=== PATIENT | female | born 1975 | race Caucasian/White ===

== ENCOUNTER 2019-09-10 14:07 | Emergency (ER) | payer BC, SELFPAY ==
--- NOTE | ~2019-09-10 | XR_ITS ---
EXAMINATION: XR finger 5th RT min 2V EXAM DATE: 09/10/2019 14:39 INDICATION: Initial encounter following injury, with pain of the right fifth finger. Laceration TECHNIQUE: Right fifth finger frontal, lateral and oblique projections obtained and reviewed. Ther e is no prior study for comparison. FINDINGS: There are no acute right fifth finger fractures or dislocations identified. There is no cee bcutaneous gas. Can't identify the laceration described. There are no radiopaque foreign bodies. IMPRESSION: No acute osseous findings. Reviewed, dictated and finalized at location A. IMPRESSION: No acute osseous findings.
[2019-09-10 14:24] VITALS: BP 122/79; PULSE 60; RESP 16; TEMP 36.3; O2SAT 100
--- NOTE | 2019-09-10 14:31 | ED.UPPEXIN ---
HPI - Extremity Injury (Upper) General Chief Complaint: Extremity Injury, Upper Stated Complaint: Right pinky injury History of Present Illness HPI narrative: This is a 44-year-old female comes in complaining of hitting her finger with a mallet and now her fingers open possibly need stitches patient stated her hand hurt but she is able to move her fingers patient denies any debris or anything being her finger able to move her finger. Related Data Allergies Allergy/AdvReac Type Severity Reaction Status Date / Time No Known Allergies Allergy Unverified 01/04/16 14:35 Review of Systems Review of Systems: Narrative: CONSTITUTIONAL: Denies fever, chills, or sweats. EYES: Denies visual changes, redness, or discharge. ENT: Denies rhinorrhea, congestion, sore throat, or otalgia. CARDIOVASCULAR:Denies chest pain, palpitations, or edema. RESPIRATORY: Denies cough or dyspnea. GASTROINTESTINAL: Denies abdominal pain, nausea, vomiting, or diarrhea. GENITOURINARY: Denies dysuria or hematuria. SKIN:[Denies rash or itching. Right lateral fifth finger laceration MUSCULOSKELETAL:Denies back pain, joint pain, or myalgia. NEUROLOGIC: Denies headache, numbness, or weakness. PSYCHIATRIC:Denies anxiety or depression PMFSH Social History Social History Smoking status: Never smoker Second hand tobacco smoke exposure: No Comments At time as signature, I have reviewed and agree with nursing past medical, social, surgical and family history. Please see nursing chart for further information. There is no relevant family history pertinent to the presenting complaint. Exam Narrative: Exam Narrative: GENERAL:Well-appearing, well-nourished, and in no acute distress. HEAD:Normocephalic, atraumatic. EYES: PERRLA and EOMI. ENT: Nares clear, no rhinorrhea or epistaxis. Mucous membranes moist. NECK: Supple. CHEST: Clear to auscultation. No respiratory distress. HEART: Regular rate and rhythm. No murmur heard. Normal peripheral pulses. ABDOMEN: Soft, nontender, nondistended, normal active bowel sounds. EXTREMITIES: Normal range of motion. No edema. SKIN: Warm, dry, no rash. 2 cm laceration on right lateral fifth finger open when the sutures NEURO: No focal deficits. Alert and oriented x3. Course Vital Signs Vital signs: Vital Signs Temperature 97.4 F L 09/10/19 14:24 Pulse Rate 60 09/10/19 14:24 Respiratory Rate 16 09/10/19 14:24 Blood Pressure 122/79 09/10/19 14:24 Pulse Oximetry 100 09/10/19 14:24 Temperature 97.4 F L 09/10/19 14:24 Pulse Rate 60 09/10/19 14:24 Respiratory Rate 16 09/10/19 14:24 Blood Pressure 122/79 09/10/19 14:24 Pulse Oximetry 100 09/10/19 14:24 Procedures Laceration Laceration 1: Date: 09/10/19 Time: 14:59 Site: hand Side (If applicable): right (little finger) Size (cm): 2 Description: linear Depth: simple, single layer Local Anesthetic: lidocaine 1% Amount of anesthesia used (mL): 0.75 Pre-repair: irrigated (350) ====== Skin Level ====== Skin layer closed with: other (ethilon) Size (cm): 6-0 Number of sutures: 6 Technique: simple, interrupted ====== Subcutaneous Layer ====== ====== Muscle Layer ====== ====== Tendon Layer ====== MDM - Extremity Injury (Upper) Differential Diagnosis Differential diagnosis: Likely sprain and strain of wrist, finger sprain, dislocation of finger and other (finger laceration ) Discharge Plan Discharge Clinical Impression: Finger laceration Qualifiers: Encounter type: initial encounter Finger: little finger Damage to nail status: with damage Foreign body presence: without foreign body Laterality: left Qualified Code(s): S61.317A - Laceration without foreign body of left little finger with damage to nail, initial encounter Patient Disposition: Home, Self-Care Condition: Stable Instructions: Antibiotic Form, Finger La
[2019-09-10] MEDS: TETANUS,DIPHTHERIA,AC PERTUSSIS ADULT 0.5 ML (ADACEL) IM (14:44)
== END 2019-09-10 15:32 | disposition home or self-care (01) ==
PROVIDERS: Emergency Provider Nurse Practitioner Family
DX: S61.216A Laceration without foreign body of right little finger without damage to nail, initial encounter (principal); W27.8XXA Contact with other nonpowered hand tool, initial encounter; Z23 Encounter for immunization
CPT/HCPCS: 12001; 73140; 90471; 90715; 99213; G0463

== ENCOUNTER → 2021-01-25 10:07 | Outpatient (CLI) | payer BC, SELFPAY ==
--- NOTE | ~2021-01-25 | MM_ITS ---
EXAMINATION: MM screening [facility] BI w tatiana HISTORY: Screening mammogram TECHNIQUE: Craniocaudal and mediolateral oblique 3-D tomosynthesis images were obtained and synthetic 2-D images were generated. CAD analysis was submitted and interpreted. COMPARISON: No prior mammogram is available for comparison at this institution. BREAST PARENCHYMAL COMPOSITION: The breasts are heterogeneously dense, which may obscure small masses . FINDINGS: Possible mass in the posterior lower outer left breast (craniocaudal Tomosynthesis image 19 /86). Diagnostic left mammogram is recommended, with ultrasound if required. No suspicious mass, architectural distortion, malignant calcification, skin thickening or retraction of either breast is detected otherwise. IMPRESSION: 1. Possible lower-outer quadrant left breast mass 2. Diagnostic left mammogram is recommended, with ultrasound if required BI-RADS Category 0: Incomplete: Needs additional imaging evaluation. Reviewed, dictated and finalized at location A.
== END ==
PROVIDERS: PCP Family Medicine; Visit Provider Family Medicine
DX: Z12.31 Encounter for screening mammogram for malignant neoplasm of breast (principal); R92.8 Other abnormal and inconclusive findings on diagnostic imaging of breast
CPT/HCPCS: 77063; 77067

== ENCOUNTER → 2021-03-04 09:44 | Outpatient (CLI) | payer BC, SELFPAY ==
--- NOTE | ~2021-03-04 | MMUS_ITS ---
EXAMINATION: MM diagnostic ken LT w tatiana, US breast LT limited HISTORY: Follow-up left breast mass TECHNIQUE: Additional 3-D tomosynthesis images of the left breast were performed and synthetic 2-D im ages were generated. CAD analysis was submitted and interpreted. High resolution Limited left breast ultrasound was performed. COMPARISON: 01/25/2021 BREAST PARENCHYMAL COMPOSITION: The breasts are heterogenously dense, which may obscure small masses. FINDINGS: MAMMOGRAPHIC FINDINGS: There is a 1.3 cm mass in the lower outer quadrant of the left breast. There are no suspicious calcif ications or architectural distortion. ULTRASOUND: Limited left breast ultrasound: There are several simple and complicated cysts of the left breast, la rgest at 3:00, 7 cm from the nipple measuring 1.6 cm corresponding to the mammographic finding. At 3: 00, 9 cm from the nipple, there is a 7 mm hyperechoic mass, consistent with a benign lipoma. No suspi cious masses to suggest malignancy. IMPRESSION: 1. No evidence for malignancy in the left breast. Benign findings. 2. Routine yearly screening mammogram and regular clinical breast examination are recommended. BI-RADS Category 2: Benign finding(s). Reviewed, dictated and finalized at location A. IMPRESSION: 1. No evidence for malignancy in the left breast. Benign findings. 2. Routine yearly screening mammogram and regular clinical breast examination a re recommended. BI-RADS Category 2: Benign finding(s).
== END ==
PROVIDERS: PCP Family Medicine; Visit Provider Physician Assistant
DX: N60.02 Solitary cyst of left breast (principal); N63.25 Unspecified lump in the left breast, overlapping quadrants
CPT/HCPCS: 76642; 77061; 77065; G0279